=== PATIENT | male | born 1965 | race Caucasian/White ===

== ENCOUNTER 2019-07-23 10:57 | Emergency (ER) | payer MEDICAID ==
[~2019-07-23] VITALS: Ht 180.3 cm; Wt 117.3 kg
[~2019-07-23 10:57] MED LIST: ALBU18HF INH; ASPI-496 PO; ATOR10TA PO; BACL-19 PO; BUDE10.2 INH; BUPR100T6 PO; CALCIUM PO; CYAN500L2 PO; DULO60CA7 PO; EFFEXOR; ERGO500017 PO; GABA600T7 PO; HYDR25TA6 PO; LISI-167 PO; METO25TA4 PO; METO50TA82 PO; NICO-487 TD; NICOTINE TD; OXYC-302 PO; QUET25TA5 PO; TIOT18CA INH
[2019-07-23 11:04] VITALS: BP 155/98
== END 2019-07-23 12:08 | disposition home or self-care (01) ==
LOC: ED 12:02
DX: M25.571 Pain in right ankle and joints of right foot (principal); F17.200 Nicotine dependence, unspecified, uncomplicated; J44.9 Chronic obstructive pulmonary disease, unspecified; I10 Essential (primary) hypertension; E78.5 Hyperlipidemia, unspecified
CPT/HCPCS: 99283